=== PATIENT | male | born 1980 | race Caucasian/White ===

== ENCOUNTER 2023-11-08 01:23 | Emergency (ER) | payer OTHER, SELFPAY ==
--- NOTE | ~2023-11-08 | XR_ITS ---
XR chest 1V portable DATE: 11/08/2023 08:14 INDICATION: Cough, fever, chills, L weakness, lethargy TECHNIQUE: Portable AP chest on 11/08/2023 at 0808 hours COMPARISON: None FINDINGS: Normal heart size. No hilar or mediastinal enlargement. No pulmonary infiltrate or consolid ation, pleural effusion or pulmonary vascular congestion or pneumothorax is detected. Included skelet al structures are unremarkable. IMPRESSION: No active cardiopulmonary disease Reviewed, dictated and finalized at location A. 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
[2023-11-08 01:24] VITALS: BP 110/68; PULSE 97; RESP 22; TEMP 37.9; O2SAT 96
[2023-11-08 06:37] VITALS: O2SAT 100
[2023-11-08 06:38] VITALS: BP 123/85; PULSE 92; RESP 15; TEMP 37.7; O2SAT 95
[2023-11-08 07:46] LABS: Influenza A QL RT-PCR Positive (Negative); Influenza B QL RT-PCR Negative (Negative); RSV RNA, RT-PCR Negative (Negative); SARS-CoV-2 RNA PCR Negative (Negative)
--- NOTE | 2023-11-08 08:36 | ED.GENADULT ---
HPI - General Adult General Chief complaint: Upper Respiratory Infection Stated complaint: I have COVID Time Seen by Provider: 11/08/23 06:59 History of Present Illness HPI narrative: Patient is a 43-year-old male who presents ER with concerns for infection. Reports 2 days ago he began to feel ill. Reports fatigue and body aches. Reports he feels like he has been hit by a truck. He does have a cough with mild sinus congestion. No chest pain or chest pressure. Cough is nonproductive. He has been having fevers at home. Related Data Allergies Allergy/AdvReac Type Severity Reaction Status Date / Time clindamycin AdvReac Diarrhea Verified 11/08/23 06:40 Review of Systems Constitutional: Constitutional: Reports chills, Reports fatigue and Reports fever(s) ENT: Reports nasal congestion and Denies sore throat Cardiovascular: Cardiovascular: Reports no additional cardiovascular complaints Respiratory: Respiratory: Denies chest congestion, Reports cough, Denies dyspnea and Denies wheezing PMFSH Past Medical History Medical History (Updated 11/08/23 @ 08:39 by Abad Shen MD) Asthma HIV (human immunodeficiency virus infection) Hyperlipidemia Social History Social History (Updated 11/08/23 @ 08:39 by Abad Shen MD) Smoking status: Current every day smoker Exam Narrative: GENERAL: Fatigued-appearing, well-nourished, and in no acute distress. HEAD: Normocephalic, atraumatic. ENT: Mucous membranes moist.. CHEST: Clear to auscultation. No respiratory distress. HEART: Regular rate and rhythm. Normal peripheral pulses. EXTREMITIES: Normal range of motion. No edema. NEURO: Alert and oriented x3. PSYCH: Normal mood and affect. Course Course Emergency Course: Patient informed of results. No pneumonia on x-ray. Will place on Tamiflu. Vital Signs Vital signs: Vital Signs Temperature 100.2 F H 11/08/23 01:24 Pulse Rate 97 11/08/23 01:24 Respiratory Rate 22 H 11/08/23 01:24 Blood Pressure 110/68 11/08/23 01:24 Pulse Oximetry 96 11/08/23 01:24 Oxygen Delivery Room Air 11/08/23 01:24 Temperature 100 F H 11/08/23 06:38 Pulse Rate 92 11/08/23 06:38 Respiratory Rate 15 11/08/23 06:38 Blood Pressure 123/85 11/08/23 06:38 Pulse Oximetry 95 11/08/23 06:38 Oxygen Delivery Room Air 11/08/23 06:37 Medical Decision Making Vital Signs Vital Signs: Vital Signs Temperature 100.2 F H 11/08/23 01:24 Pulse Rate 97 11/08/23 01:24 Respiratory Rate 22 H 11/08/23 01:24 Blood Pressure 110/68 11/08/23 01:24 Pulse Oximetry 96 11/08/23 01:24 Oxygen Delivery Room Air 11/08/23 01:24 Temperature 100 F H 11/08/23 06:38 Pulse Rate 92 11/08/23 06:38 Respiratory Rate 15 11/08/23 06:38 Blood Pressure 123/85 11/08/23 06:38 Pulse Oximetry 95 11/08/23 06:38 Oxygen Delivery Room Air 11/08/23 06:37 Lab Data Labs: Lab Results 11/08/23 Range/Units 06:49 Influenza A (RT-PCR) Positive A (Negative) Influenza B (RT-PCR) Negative (Negative) RSV (RT-PCR) Negative (Negative) SARS-CoV-2 RNA (RT-PCR) Negative (Negative) Imaging Data Radiologist's impression: ITS Impressions Chest X-Ray 11/08/23 08:15 IMPRESSION: No active cardiopulmonary disease Discharge Plan Discharge Clinical Impression: Influenza Patient Disposition: Home, Self-Care Condition: Stable Instructions: Influenza (ED) Additional Instructions: Return the ER if you cannot breathe, you cannot keep down food or water, you lose consciousness, or you have additional concerns. Prescriptions: New oseltamivir 75 mg capsule 75 mg PO BID Qty: 10 0RF Follow-up/Referrals: UNKNOWN,DOCTOR [Primary Care Provider] - 1 Week Stand Alone Forms: Work/School Release IP
[2023-11-08 08:40] VITALS: BP 115/57; PULSE 70; RESP 16; O2SAT 98
== END 2023-11-08 08:40 | disposition home or self-care (01) ==
PROVIDERS: Emergency Medicine; Emergency Provider Emergency Medicine
DX: J11.1 Influenza due to unidentified influenza virus with other respiratory manifestations (principal); E78.5 Hyperlipidemia, unspecified; B20 Human immunodeficiency virus [HIV] disease; Z20.822 Contact with and (suspected) exposure to COVID-19
CPT/HCPCS: 71045; 87637; 99283